=== PATIENT | male | born 1945 | race Two or more races ===

== ENCOUNTER 2019-02-12 22:09 | Inpatient (IN) | payer OTHER ==
[~2019-02-12] VITALS: Ht 172.7 cm; Wt 67.0 kg
[2019-02-12] MEDS ORDERED: MORPHINE SULFATE 4 MG/ML SYR/VIAL IV ONE (23:30)
[2019-02-12] MEDS ORDERED: ONDANSETRON HCL 4 MG/2 ML VIAL IV ONE (23:30)
[2019-02-12] MEDS ORDERED: LORazepam 2MG/ML-1ML VIAL IV ONE (23:30)
[2019-02-12 23:45] LABS: Basophils # (auto) 0 uL; Basophils % (auto) 0.3 % (0.0-2.0); Eosinophils # (auto) 0.4 uL; Hematocrit 40.9 % (41.0-53.0); Lymphocytes % (auto) 14.4 % (10.0-50.0); Mean Corpuscular Hemoglobin 34.2 pg (28.0-32.0); Mean Corpuscular Hgb Conc. 34.2 g/dL (32.0-36.0); Mean Corpuscular Volume 100.2 fL (80.0-100.0); Monocytes # (auto) 0.7 uL; Monocytes % (auto) 5.1 % (0.0-12.0); Neutrophils # (auto) 10.5 uL; Neutrophils % (auto) 77.2 % (37.0-80.0); Nucleated Red Blood Cells % 0.1 %; Platelet Count (auto) 115 10^3/uL (140-450); Red Blood Cells 4.09 10^6/uL (4.5-5.90); Red Cell Distribution Width 12.7 % (11.8-14.3); White Blood Cell 13.6 10^3/uL (4.4-10.8)
[2019-02-13 00:04] LABS: INR 1.08 (0.9-1.15); Partial Thromboplastin Time 27.7 sec (23.78-33.04); Prothrombin Time 11.5 sec (9.27-12.13)
[2019-02-13 00:05] LABS: Albumin 3.7 g/dL (3.4-5.0); Anion Gap 6 (5-15); Blood Urea Nitrogen 23 mg/dL (7-18); Calcium 8.3 mg/dL (8.5-10.1); Carbon Dioxide 23 mmol/L (21-32); Chloride 112 mmol/L (98-107); Glucose 99 mg/dL (74-106); Potassium 3.4 mmol/L (3.5-5.1); Sodium 141 mmol/L (136-145)
[2019-02-13 00:08] LABS: Alanine Aminotransferase 29 U/L (16-61); Aspartate Aminotransferase 14 U/L (15-37); BUN/Creatinine Ratio 19.3; GFR African American 77 mL/min; GFR Non-African American 64 mL/min
[2019-02-13 00:19] LABS: Alkaline Phosphatase 101 U/L (45-117); Bilirubin, Total 0.4 mg/dL (0.2-1.0); Total Protein 7.4 g/dL (6.4-8.2)
[2019-02-13] MEDS ORDERED: ACETAMINOPHEN 325 MG TAB PO PRN (04:15)
[2019-02-13] MEDS ORDERED: TEMAZEPAM 15 MG CAP PO PRN (04:15)
[2019-02-13] MEDS ORDERED: cloNIDine HCL 0.1 MG TAB PO PRN (04:15)
[2019-02-13] MEDS ORDERED: ONDANSETRON HCL 4 MG/2 ML VIAL IV PRN (04:15)
[2019-02-13] MEDS ORDERED: MORPHINE SULFATE 4 MG/ML SYR/VIAL IV ONE (04:30)
[2019-02-13] MEDS ORDERED: ONDANSETRON HCL 4 MG/2 ML VIAL IV ONE (04:30)
[2019-02-13 05:14] LABS: Urine Amorphous Crystal FEW /hpf (None Seen); Urine Bacteria FEW /hpf (None Seen); Urine Blood 1+ /uL (Negative); Urine Mucus FEW (None Seen); Urine WBC 1 /hpf (0 - 3)
[2019-02-13] MEDS ORDERED: ENOXAPARIN SOD 40 MG/0.4 ML SYRINGE SC SCH (10:00)
[2019-02-13] MEDS: CARVEDILOL 3.125 MG TAB PO SCH ×2 (10:00→21:58)
[2019-02-13] MEDS: FAMOTIDINE 20 MG TAB PO SCH ×2 (10:00→21:54)
[2019-02-13] MEDS: MORPHINE SULFATE 4 MG/ML SYR/VIAL IV PRN ×3 (10:51→20:31)
[2019-02-13] MEDS ORDERED: POTASSIUM CHL 20 Meq TABLET PO ONE (15:30)
--- NOTE | 2019-02-13 15:30 | NUR ---
MS admit from ER DARION GAVLAN admitted to tele/MS after SBAR received. Patient oriented to SO ESQUIVEL, RN primary RN, unit, room, bed, and unit policies regarding patient care and visiting hours. Patient weighed by bedscale and encouraged to call if they need something. All questions and concerns addressed, patient verbalized understanding. Family at bedside.
[2019-02-13 17:33] VITALS: BP 151/66
[2019-02-13 17:54] VITALS: BP 151/66
--- NOTE | 2019-02-13 18:17 | NUR ---
ORDER TO INSERT GERMAN CATHETER; PATIENT REFUSES CATHETER INSERTION AT THIS TIME. PATIENT USING URINAL AT BEDSIDE. PATIENT EDUCATED, AND WILL CONTINUE TO MONITOR Q1.
[2019-02-13] MEDS ORDERED: ASPI-231 PO (21:05)
[2019-02-13] MEDS ORDERED: CARV3.1240 PO (21:05)
[2019-02-13 22:00] VITALS: BP 156/71
--- NOTE | 2019-02-13 22:35 | NUR ---
TRANSFERRED PATIENT TO ROOM 287A WITH DURABLE MEDICAL EQUIPMENT REPAIRER WITH ALL BELONGINGS. DAUGHTER AT BEDSIDE. CONTINUE PATIENT CARE.
[2019-02-14] MEDS: MORPHINE SULFATE 4 MG/ML SYR/VIAL IV PRN ×5 (00:55→20:29)
[2019-02-14 05:00] VITALS: BP 134/55
[2019-02-14 05:57] LABS: Basophils # (auto) 0 uL; Basophils % (auto) 0.3 % (0.0-2.0); Eosinophils # (auto) 0.4 uL; Hematocrit 32.3 % (41.0-53.0); Hemoglobin 11.5 g/dL (13.5-17.5); Lymphocytes # (auto) 1.3 uL; Lymphocytes % (auto) 16.8 % (10.0-50.0); Mean Corpuscular Hemoglobin 35.1 pg (28.0-32.0); Mean Corpuscular Hgb Conc. 35.5 g/dL (32.0-36.0); Mean Corpuscular Volume 98.9 fL (80.0-100.0); Monocytes # (auto) 0.6 uL; Monocytes % (auto) 7.4 % (0.0-12.0); Neutrophils # (auto) 5.5 uL; Neutrophils % (auto) 70.5 % (37.0-80.0); Platelet Count (auto) 84 10^3/uL (140-450); Red Blood Cells 3.27 10^6/uL (4.5-5.90); Red Cell Distribution Width 12.7 % (11.8-14.3); White Blood Cell 7.9 10^3/uL (4.4-10.8)
--- NOTE | 2019-02-14 06:20 | NUR ---
Family updated on pt status Family of DARION GALVAN updated on patient's status and condition AFTER VERIFICATION OF PASSWORD. All questions and concerns addressed. MICHAEL verbalized understanding.
[2019-02-14 06:21] LABS: BUN/Creatinine Ratio 13.1; Potassium 3.6 mmol/L (3.5-5.1)
--- NOTE | 2019-02-14 06:48 | NUR ---
PATIENT RESTING ON BED AT THIS TIME, NO RESPIRATORY DISTRESS NOTED. NEON INSTALLER AT BEDSIDE.
--- NOTE | 2019-02-14 08:28 | NUR ---
PATIENT'S DAUGHTER AT BEDSIDE. MADE AWARE HOLDING BREAKFAST TRAY AT THIS TIME, STILL WAITING FOR ORTH EVAL FOR POSSIBLE SURGERY FOR HIP FRACTURE. VERBALIZED UNDERSTANDING. CONTINUE PATIENT CARE.
[2019-02-14 09:00] VITALS: BP 137/63
--- NOTE | 2019-02-14 09:10 | NUR ---
PATIENT GIVEN SPONGE BATH BY PHTHALIC ACID PURIFIER. KEPT CLEAN AND DRY. PATIENT TOLERATED WELL. DAUGHTER AT BEDSIDE.
[2019-02-14] MEDS: CARVEDILOL 3.125 MG TAB PO SCH ×2 (10:15→21:42)
[2019-02-14] MEDS: FAMOTIDINE 20 MG TAB PO SCH ×2 (10:15→21:41)
--- NOTE | 2019-02-14 10:30 | NUR ---
spoke with dr. hook regarding ortho consult of patient, per dr. hook he spoke with dr. arrington yesterday and will see patient and will do surgery. made dr. hook aware that no orders was put in and per family member, dr. arrington has not seen patient. dr. hook stated he will text/notify dr. arrington again and may feed patient for now. notified patient's daughter of what dr. hook said. per patient's daughter, patient is getting anxious and is requesting to just be transferred to [facility], made daughter aware that transfer may also be delayed or may not happen tonight but will notify hospitalist. daughter verbalized understanding. continue patient care.
--- NOTE | 2019-02-14 10:45 | NUR ---
OFFERED NORCO IN BETWEEN MORPHINE FOR PATIENT'S PAIN, DAUGHTER REFUSED. CONTINUE PATIENT CARE.
--- NOTE | 2019-02-14 12:00 | NUR ---
PATIENT AND FAMILY MEMBERS DECIDED NOT TO BE TRANSFERRED AND WILL WAIT FOR ORTHO MD TO SEE PATIENT. PATIENT REQUESTED TO TAKE NORCO FOR PAIN AT THIS TIME. REINSTATEMENT CLERK AT BEDSIDE. CONTINUE PATIENT CARE.
[2019-02-14 12:20] VITALS: BP 120/57
[2019-02-14] MEDS: HYDROcodone-ACET 5/325MG TAB PO PRN ×2 (12:26→19:18)
[2019-02-14 13:00] VITALS: BP 115/55
--- NOTE | 2019-02-14 14:00 | NUR ---
DR. BOWDEN AT BEDSIDE TALKING WITH PATIENT'S DAUGHTER.
--- NOTE | 2019-02-14 15:18 | NUR ---
REPORTS GIVEN TO NEDA/RN TO ASSUME CARE OF PATIENT.
--- NOTE | 2019-02-14 15:20 | NUR ---
RECEIVED PATIENT FROM CULLEN/NAVIN. PATIENT RESTING IN BED. DAUGHTER AT BEDSIDE. NO S/S OF DISTRESS NOTED. PATIENT COULD ACTIVE ROM HIS LEGS WITH NO PAIN. POC INSTRUCTED AND ENCOURAGED PATIENT TO CALL FOR SHIRT FOLDING MACHINE OPERATOR IF NEEDED. BED IN LOWEST POSITION WITH SIDE RAILS UP X 2. CALL TORRES WITHIN REACH. ALARM ON. SITTER AT BEDSIDE FOR SAFETY. CONTINUE TO MONITOR FOR CHANGES Q1H AND PRN.
[2019-02-14 17:00] VITALS: BP 129/71
--- NOTE | 2019-02-14 17:07 | NUR ---
DR YANEZ AT BEDSIDE.
--- NOTE | 2019-02-14 17:27 | NUR ---
PUT PATIENT ON SCD ORDERED. PATIENT TOLERATED WELL. CONTINUE TO MONITOR.
--- NOTE | 2019-02-14 17:43 | NUR ---
ALL CONSENTS SIGNED BY PATIENT. CONTINUE CARE.
--- NOTE | 2019-02-14 19:20 | NUR ---
PAIN MEDICATION GIVEN FOR PAIN @ 06/06 ORDERED. CONTINUE TO MONITOR.
[2019-02-14 20:42] LABS: Basophils # (auto) 0 uL; Hemoglobin 12.2 g/dL (13.5-17.5); Lymphocytes # (auto) 1.2 uL; Mean Corpuscular Hemoglobin 34.7 pg (28.0-32.0); Nucleated Red Blood Cells % 0.1 %; Red Blood Cells 3.52 10^6/uL (4.5-5.90)
[2019-02-14 20:44] LABS: Basophils % (auto) 0.4 % (0.0-2.0); Eosinophils # (auto) 0.5 uL; Hematocrit 34.9 % (41.0-53.0); Lymphocytes % (auto) 14.8 % (10.0-50.0); Mean Corpuscular Volume 99.2 fL (80.0-100.0); Monocytes # (auto) 0.6 uL; Monocytes % (auto) 7.4 % (0.0-12.0); Neutrophils # (auto) 5.7 uL; Neutrophils % (auto) 71.4 % (37.0-80.0); Platelet Count (auto) 87 10^3/uL (140-450); Red Cell Distribution Width 12.8 % (11.8-14.3)
--- NOTE | 2019-02-14 20:50 | NUR ---
PREMEDICATED PATIENT PAIN MEDICATION FOR TRACTION. TOTAL LINEN CHANGED, TRACTION APPLIED WITH 5 1BS BAG. PATIENT TOLERATED WELL. NO S/S OF DISTRESS NOTED. CONTINUE TO MONITOR.
[2019-02-14 21:36] VITALS: BP 159/68
--- NOTE | 2019-02-14 21:42 | NUR ---
IV removal PATIENT C/O ITCHING ON IV SITE AND INSISTED TO REMOVE IT. IV DC'd with clean sterile technique, catheter fully intact. Pressure dressing applied to site. Patient tolerated well. NOTE:
--- NOTE | 2019-02-14 21:43 | NUR ---
IV insertion IV access obtained, via clean sterile technique by inserting [20] gauge catheter at [RFA] after [1] attempt(s). IV secured properly. No trauma to site. Patient tolerated well. NOTE: []
--- NOTE | 2019-02-14 22:45 | NUR ---
REASSESSED BP 142/71, HR 73. CONTINUE TO MONITOR.
[2019-02-15] MEDS: MORPHINE SULFATE 4 MG/ML SYR/VIAL IV PRN ×2 (00:39→04:50)
--- NOTE | 2019-02-15 00:39 | NUR ---
PATIENT WOKE UP AND C/O PAIN @ 8/10. MEDICATED PATIENT ORDERED. CONTINUE TO MONITOR.
[2019-02-15] MEDS: HYDROcodone-ACET 5/325MG TAB PO PRN ×2 (02:35→19:52)
--- NOTE | 2019-02-15 02:51 | NUR ---
PATIENT C/O PAIN @ 8/10. MEDICATED PATIENT ORDERED. RIGHT FOOT IS WARM, PULSE IS GOOD. TRACTION IN PLACE. CONTINUE TO MONITOR.
--- NOTE | 2019-02-15 03:35 | NUR ---
PATIENT SLEEPING. NO S/S OF DISTRESS AND PAIN NOTED. TRACTION IN PLACE. SITTER AT BEDSIDE FOR SAFETY. CONTINUE TO MONITOR.
[2019-02-15 05:00] VITALS: BP 137/55
--- NOTE | 2019-02-15 05:14 | NUR ---
CHG WIPE DONE. PATIENT TOLERATED WELL. LINEN CHANGED. PAIN MEDICATION GIVEN FOR PAIN @ 06/06. CONTINUE TO MONITOR.
[2019-02-15 06:12] LABS: Eosinophils # (auto) 0.5 uL; Hemoglobin 11.8 g/dL (13.5-17.5); Mean Corpuscular Hemoglobin 35.1 pg (28.0-32.0); Mean Corpuscular Volume 98.2 fL (80.0-100.0); Monocytes # (auto) 0.7 uL
[2019-02-15 06:15] LABS: Basophils # (auto) 0.1 uL; Basophils % (auto) 0.6 % (0.0-2.0); Eosinophils % (auto) 5.6 % (0.0-7.0); Hematocrit 33.1 % (41.0-53.0); Lymphocytes # (auto) 1.4 uL; Lymphocytes % (auto) 15.6 % (10.0-50.0); Mean Corpuscular Hgb Conc. 35.7 g/dL (32.0-36.0); Neutrophils # (auto) 6.4 uL; Neutrophils % (auto) 70.2 % (37.0-80.0); Platelet Count (auto) 86 10^3/uL (140-450); Red Blood Cells 3.37 10^6/uL (4.5-5.90); Red Cell Distribution Width 12.6 % (11.8-14.3); White Blood Cell 9.1 10^3/uL (4.4-10.8)
--- NOTE | 2019-02-15 08:02 | NUR ---
Patient brought down to Pre-Op. No complaints of pain. tolerated procedure well.
[2019-02-15] MEDS ORDERED: ceFAZolin 1GM/50ML 100 ML IV ONE (08:23)
[2019-02-15] MEDS ORDERED: fentaNYL CITRATE 100 MCG/2 ML VL ONE ×2 (08:38→09:51)
[2019-02-15] MEDS ORDERED: MEPERIDINE HCL (50 MG/ML) 1 ML VIAL ONE (08:39)
[2019-02-15] MEDS ORDERED: MIDAZOLAM HCL 1MG/1ML-2 ML VIAL ONE (08:39)
[2019-02-15] MEDS ORDERED: SUCCINYLCHOLINE CHLORIDE 20 MG/ML 10ML VIAL IV ONE (08:42)
[2019-02-15] MEDS ORDERED: TRANEXAMIC ACID 20 ML ONE (08:42)
[2019-02-15] MEDS ORDERED: PROPOFOL 10 MG/ML 20 ML IV ONE (08:55)
[2019-02-15] MEDS ORDERED: DEXAMETHASONE SOD PHOS 10MG/1ML VIAL INJ ONE (08:55)
[2019-02-15] MEDS ORDERED: ETOMIDATE (2MG/ML) 20ML VIAL IV ONE (08:56)
[2019-02-15 09:00] VITALS: BP 108/54
[2019-02-15] MEDS ORDERED: KETOROLAC TROMETH 30 MG/ML 1ML VIAL IV ONE (10:00)
[2019-02-15] MEDS ORDERED: ePHEDrine SULFATE 50 MG/ML AMP IV PRN (10:00)
[2019-02-15] MEDS ORDERED: ONDANSETRON HCL 4 MG/2 ML VIAL IV ONE (10:00)
[2019-02-15] MEDS ORDERED: MORPHINE SULFATE 4 MG/ML SYR/VIAL IV PRN (10:00)
[2019-02-15] MEDS ORDERED: MIDAZOLAM HCL 1MG/1ML-2 ML VIAL IV PRN (10:00)
[2019-02-15] MEDS: CARVEDILOL 3.125 MG TAB PO SCH ×2 (10:00→22:44)
[2019-02-15] MEDS ORDERED: MORPHINE SULFATE 4 MG/ML SYR/VIAL IV ONE (10:00)
[2019-02-15] MEDS ORDERED: LABETALOL HCL 5 MG/ML 4ML SYRINGE IV PRN (10:00)
[2019-02-15] MEDS: FAMOTIDINE 20 MG TAB PO SCH ×2 (10:00→22:45)
[2019-02-15] MEDS ORDERED: hydrALAZINE HCL 20 MG/ML VL IV PRN (10:00)
[2019-02-15] MEDS ORDERED: HYDROmorphone HCL 2 MG/ML VL IV PRN (10:00)
[2019-02-15 13:00] VITALS: BP_SYST 131; BP_SYST 97; BP_DIAS 59; BP_DIAS 69
[2019-02-15] MEDS: ceFAZolin 1GM/50ML 50 ML IV SCH ×2 (14:00→22:45)
--- NOTE | 2019-02-15 14:00 | NUR ---
Patient back from the OR. recieved report from Althea HOLDEN. Patient brought up with dressing clean dry and in tact. Family at bedside. No complaints of pain. Will continue to monitor.
[2019-02-15] MEDS ORDERED: LORazepam 0.5 MG TAB PO PRN (15:00)
[2019-02-15 17:00] VITALS: BP_SYST 107; BP_SYST 134; BP_DIAS 55; BP_DIAS 62
--- NOTE | 2019-02-15 19:25 | NUR ---
Opening Shift Note Bed side report with day NAVIN Cedillo. Assumed care of patient, awake and alert. No S/S of distress/SOB PT report pain 05/07 will medicate per MD order. Family members at bedside. Sitter at bedside for safety, HOB elevated, pt running 2 L NC. Instructed on POC and to call for assist PRN, will continue to monitor for changes Q1hr and PRN.
[2019-02-15 21:17] VITALS: BP 133/51
[2019-02-16 05:12] VITALS: BP 141/65
[2019-02-16] MEDS: ceFAZolin 1GM/50ML 50 ML IV SCH (05:27)
[2019-02-16 06:03] LABS: BUN/Creatinine Ratio 14.3; Calcium 8.5 mg/dL (8.5-10.1); Potassium 4.2 mmol/L (3.5-5.1)
[2019-02-16 07:16] LABS: Basophils # (auto) 0 uL; Basophils % (auto) 0.1 % (0.0-2.0); Eosinophils # (auto) 0 uL
[2019-02-16 07:20] LABS: Eosinophils % (auto) 0.1 % (0.0-7.0); Hematocrit 31.9 % (41.0-53.0); Hemoglobin 11.2 g/dL (13.5-17.5); Lymphocytes % (auto) 6.8 % (10.0-50.0); Mean Corpuscular Hemoglobin 34.5 pg (28.0-32.0); Mean Corpuscular Volume 98.5 fL (80.0-100.0); Monocytes # (auto) 0.9 uL; Monocytes % (auto) 6.3 % (0.0-12.0); Neutrophils # (auto) 12.3 uL; Neutrophils % (auto) 86.7 % (37.0-80.0); Platelet Count (auto) 101 10^3/uL (140-450); Red Blood Cells 3.24 10^6/uL (4.5-5.90); Red Cell Distribution Width 12.6 % (11.8-14.3); White Blood Cell 14.2 10^3/uL (4.4-10.8)
--- NOTE | 2019-02-16 07:35 | NUR ---
OPENING SHIFT PATIENT AWAKE AND ALERT, ORIENTED X4. NO S/S OF DISTRESS, SOB, OR PAIN. SITTER IS AT BEDSIDE FOR PERIODS OF CONFUSION. PATIENT IS S/P RT HIP SURGERY 02/15, PT HAS ORIGINAL DRESSING TO RIGHT HIP THAT IS CLEAN, DRY, AND INTACT. PATIENT IN ON 2L NASAL CANNULA AND SALINE LOCKED. BED IS IN LOWEST POSITION, SIDE RAILS UP X2, AND CALL LIGHT WITHIN REACH. WILL CONTINUE TO MONITOR Q1 HOUR AND PRN.
--- NOTE | 2019-02-16 10:10 | NUR ---
DAUGHTER MICHAEL CONCERNED PATIENT HAS PERIODS OF CONFUSION. M.D. AWARE. THIS A.M. PATIENT WAS A & 0 X 4 WITH THIS R.N. DAUGHTER CAME OUT STATING, "MY DAD JUST SAID HE DOESN'T KNOW WHERE HE IS AT AGAIN. HE HAS NEVER BEEN LIKE THIS AT HOME. I THINK THE MEDICINE THAT MADE HIM LIKE THIS SHOULD BE GONE BY NOW, I WANT SOMEONE TO LOOK MORE INTO HIS CONFUSION." INFORMED DAUGHTER I WOULD INFORM M.D. OF FAMILY REQUEST. DAUGHTER VERBALIZED UNDERSTANDING.
[2019-02-16] MEDS ORDERED: SIMV-8 PO (10:20)
[2019-02-16] MEDS ORDERED: CARV6.2551 PO (10:23)
--- NOTE | 2019-02-16 10:24 | NUR ---
MED REC UPDATED DAUGHTER BROUGHT IN CURRENT MEDICATIONS FOR FATHER MED REC SUCCESSFULLY REVIEWED AND UPDATED
[2019-02-16] MEDS: FAMOTIDINE 20 MG TAB PO SCH ×2 (10:54→22:06)
[2019-02-16] MEDS: CARVEDILOL 3.125 MG TAB PO SCH ×2 (10:54→22:00)
[2019-02-16] MEDS: HYDROcodone-ACET 5/325MG TAB PO PRN ×2 (12:59→20:32)
--- NOTE | 2019-02-16 13:15 | NUR ---
PATIENT UP WITH PT PATIENT WAS MEDICATED FOR PAIN AT BEFORE ACTIVITY AMBULATED TO CHAIR AT BEDSIDE. PATIENT ALSO PERFORMED R.O.M EXERCISES. NO S/S OF DISTRESS, SOB, OR PAIN WILL CONTINUE TO MONITOR Q1 HOUR AND PRN
--- NOTE | 2019-02-16 14:41 | NUR ---
Nutrition Assessment Notes Please see attached link for complete assessment Est. Needs BW [id number] kcal (25-30 kcal/kgBW), 68-81 gms pro (1.0-1.2 gms/kgBW). Will continue to monitor pertinent labs and reassess nutrient need prn Addendum: 02/16/19 at [address] Amended: Links added.
--- NOTE | 2019-02-16 17:16 | NUR ---
assessment Patient is a 73 year old male who is confused. Per patients daughter Lilliam prior to admission patient lived home with her and functioned with assistance. Patient has a cane for home use. Patients PCP is at the [facility]. Per Lilliam patient tripped over their puppy and fell at home. Patient may benefit from SNF placement on discharge. Patient has an advanced directive and Lilliam is patients POA. Divine has verbalized understanding and agreed that patients post discharge needs will be determined prior to discharge. Addendum: 02/16/19 at 1719 by Molly CUEVAS Amended: Links added.
--- NOTE | 2019-02-16 17:39 | NUR ---
PATIENT CALM RESTING PATIENT RESTING IN BED. PATIENT ALERT, AND ORIENTED X3. CALM AND RELAXED. NO S/S OF DISTRESS, SOB, OR PAIN. WILL CONTINUE TO MONITOR Q1 HOUR AND PRN.
--- NOTE | 2019-02-16 18:49 | NUR ---
END OF SHIFT PATIENT ASLEEP IN BED. NO S/S OF DISTRESS, SOB, OR PAIN. RESPIRATIONS EVEN AND UNLABORED. BED IS IN LOWEST POSITION, SIDE RAILS UP X2, AND CALL LIGHT WITHIN REACH. WILL ENDORSE ARE TO COOKING INSTRUCTOR R.N.
[2019-02-16 23:40] VITALS: BP 90/40
[2019-02-17] MEDS: HYDROcodone-ACET 5/325MG TAB PO PRN ×3 (05:14→18:23)
[2019-02-17 06:05] LABS: Basophils # (auto) 0 uL; Basophils % (auto) 0.3 % (0.0-2.0); Eosinophils # (auto) 0.1 uL; Eosinophils % (auto) 0.7 % (0.0-7.0); Lymphocytes # (auto) 1.6 uL; Red Blood Cells 2.92 10^6/uL (4.5-5.90)
[2019-02-17 06:07] LABS: Hematocrit 28.7 % (41.0-53.0); Hemoglobin 10.2 g/dL (13.5-17.5); Lymphocytes % (auto) 15.3 % (10.0-50.0); Mean Corpuscular Hgb Conc. 35.7 g/dL (32.0-36.0); Mean Corpuscular Volume 98.1 fL (80.0-100.0); Monocytes # (auto) 0.7 uL; Monocytes % (auto) 7.2 % (0.0-12.0); Neutrophils # (auto) 7.9 uL; Neutrophils % (auto) 76.5 % (37.0-80.0); Platelet Count (auto) 105 10^3/uL (140-450); Red Cell Distribution Width 12.8 % (11.8-14.3); White Blood Cell 10.4 10^3/uL (4.4-10.8)
[2019-02-17 06:20] VITALS: BP 97/50
[2019-02-17 07:52] VITALS: BP 84/47
--- NOTE | 2019-02-17 09:37 | NUR ---
PT AT BEDSIDE P/T AT BEDSIDE TO AMBULATE PATIENT. DAUGHTER MICHAEL IS AT BEDSIDE WELL. PATIENT MEDICATED FOR PAIN PER EMAR/ M.D ORDER WILL CONTINUE TO MONITOR Q1 HOUR AND PRN.
[2019-02-17] MEDS: CARVEDILOL 3.125 MG TAB PO SCH ×2 (10:00→22:00)
[2019-02-17] MEDS: FAMOTIDINE 20 MG TAB PO SCH ×2 (10:23→22:00)
--- NOTE | 2019-02-17 10:36 | NUR ---
WOUND CARE INCISION OBSERVED. 16 HILARIO NOTED. CLEAN, NO DRAINAGE, NO ODOR. WOUND CLEANSED WITH NORMAL SALINE. PATTED DRY WITH STERILE GAUZE. ABDOMINAL ABSORBANT PAD PLACED OVER 16 HILARIO INCISION. MICROPORE TAPE PLACED OVER PAD TO SECURE DRESSING. PATIENT TOLERATED PROCEDURE WITHOUT S/S OF DISTRESS, SOB, OR PAIN.
[2019-02-17 12:49] VITALS: BP 118/55
[2019-02-17] MEDS ORDERED: MORPHINE SULFATE 4 MG/ML SYR/VIAL IV PRN (14:45)
[2019-02-17 16:40] VITALS: BP 140/49
--- NOTE | 2019-02-17 18:42 | NUR ---
END OF SHIFT PATIENT RESTING IN BED. SITTER AT BEDSIDE. NO S/S OF DISTRESS, SOB, OR PAIN. RESPIRATIONS EVEN AND UNLABORED. DRESSING TO RIGHT HIP IS CLEAN, DRY, AND INTACT. BED IS IN LOWEST POSITION, SIDE RAILS UP X2, AND CALL LIGHT WITHIN REACH. WILL ENDORSE ARE TO SUPERVISOR COMMISSARY PRODUCTION R.N.
--- NOTE | 2019-02-17 20:00 | NUR ---
OPENING SHIFT NOTE: PATIENT IS SLEEPING AT THE MOMENT. SITTER IS BEDSIDE. WILL CONTINUE TO MONITOR.
[2019-02-17 22:00] VITALS: BP 102/52
[2019-02-18 05:19] VITALS: BP 103/56
[2019-02-18 06:32] LABS: Basophils # (auto) 0 uL; Basophils % (auto) 0.5 % (0.0-2.0); Eosinophils # (auto) 0.4 uL; Eosinophils % (auto) 5.5 % (0.0-7.0); Hematocrit 32.3 % (41.0-53.0); Hemoglobin 11.2 g/dL (13.5-17.5); Lymphocytes # (auto) 1.6 uL; Lymphocytes % (auto) 20.9 % (10.0-50.0); Mean Corpuscular Hemoglobin 34.3 pg (28.0-32.0); Mean Corpuscular Hgb Conc. 34.6 g/dL (32.0-36.0); Mean Corpuscular Volume 99.2 fL (80.0-100.0); Monocytes # (auto) 0.6 uL; Neutrophils % (auto) 65.1 % (37.0-80.0); Platelet Count (auto) 123 10^3/uL (140-450); Red Blood Cells 3.26 10^6/uL (4.5-5.90); Red Cell Distribution Width 12.9 % (11.8-14.3); White Blood Cell 7.7 10^3/uL (4.4-10.8)
--- NOTE | 2019-02-18 07:30 | NUR ---
OPENING SHIFT PATIENT AWAKE, ALERT, AND ORIENTED X4. RESPIRATIONS EVEN AND UNLABORED. NO S/S OF DISTRESS OR SOB. PATIENT C/O OF RIGHT HIP PAIN. WILL MEDICATE PER EMAR/ M.D. ORDERS. DRESSING TO RIGHT HIP IS CLEAN, DRY, AND INTACT. DISCUSSED POC WITH PATIENT, PATIENT VERBALIZED UNDERSTANDING. SITTER IS AT BEDSIDE. BED IS IN LOWEST POSITION, SIDE RAILS UPX2 , AND CALL LIGHT WITHIN REACH. WILL CONTINUE TO MONITOR Q1 HOUR AND PRN.
[2019-02-18] MEDS: HYDROcodone-ACET 5/325MG TAB PO PRN ×2 (08:13→21:54)
--- NOTE | 2019-02-18 08:15 | NUR ---
C/O OF HIP/LEG/FOOT PAIN PATIENT C/O 10/10 PAIN IN RIGHT HIP/LEG/FOOT. DRESSING TO RIGHT HIP IS CLEAN, DRY, AND INTACT. NO SWELLING OBSERVED. AREA IS WARM TO TOUCH. PATIENT WAS ADMINISTERED MORPHINE AT 0547. PATIENT HAD NOT BEEN PREVIOUSLY ADMINISTERED MORPHINE DUE TO ALOC. PATIENT, HOWEVER, IS ALERT AND ORIENTED X4 AND STILL COMPLAINING OF PAIN. PATIENT STATES, " I WILL NOT BE ABLE TO DO PHYSICAL THERAPY TODAY. THE PAIN IS THROBBING AND RIDICULOUS, THE PAIN MEDICATION DOES NOT WORK. " PATIENT MEDICATED WITH NORCO PER EMAR/ M.D. ORDERS. PATIENT STATES, " THIS IS NOT GOING TO DO ANYTHING FOR ME. " WILL MONITOR PATIENT Q 30 MIN AND PRN. SITTER AT BEDSIDE
--- NOTE | 2019-02-18 08:52 | NUR ---
PATIENT C/O LEFT FOOT PAIN PATIENT STATES, "MY TOE NAILS HURT EXTREMELY BAD. CAUSING BULL SHIT PAIN." FACIAL GRIMACING WHEN SOCKS REMOVED. PATIENT PULLS AWAY TO TOUCH. DAUGHTER MICHAEL AT BEDSIDE STATES, " CAN YOU PUT AN ORDER FOR A FOOT DOCTOR IN. ITS BOTH HIS FEET. HE HAS A HISTORY OF LEG STENTS. " PEDAL PULSES PRESENT BILATERALLY. FEET ARE WARM TO TOUCH. EXPLAINED TO PATIENT AND FAMILY HOSPITAL POLICY AND PROCEDURE. INFORMED THEM I WOULD UPDATE M.D. ON PATIENTS CONDITION THIS A.M. PATIENT AND FAMILY VERBALIZED UNDERSTANDING.
[2019-02-18 09:14] VITALS: BP 99/64
--- NOTE | 2019-02-18 09:20 | NUR ---
DR. HURST UPDATED M.D. OF PATIENT STATUS AND FAMILY CONCERNS. M.Leonor. AT BEDSIDE DISCUSSING POC WITH PATIENT AND FAMILY PATIENT AND FAMILY VERBALIZED UNDERSTANDING NEW ORDERS PLACED
--- NOTE | 2019-02-18 09:59 | NUR ---
PATIENT WITH P/T P/T AT BEDSIDE. PATIENT HAS PERSONAL LEG BRACES ON BILATERALLY. NO S/S OF DISTRESS, SOB, OR PAIN. DAUGHTER AT BEDSIDE
[2019-02-18] MEDS: CARVEDILOL 3.125 MG TAB PO SCH ×2 (10:00→21:53)
[2019-02-18] MEDS: FAMOTIDINE 20 MG TAB PO SCH ×2 (10:50→21:54)
[2019-02-18] MEDS: ENOXAPARIN SOD 40 MG/0.4 ML SYRINGE SC SCH (10:50)
[2019-02-18 12:14] VITALS: BP 124/80
[2019-02-18 16:24] VITALS: BP 107/76
--- NOTE | 2019-02-18 18:38 | NUR ---
END OF SHIFT PATIENT RESTING IN BED. NO S/S OF DISTRESS, SOB, OR PAIN. RESPIRATIONS EVEN AND UNLABORED. BED IS IN LOWEST POSITION, SIDE RAILS UP X2, AND CALL LIGHT WITHIN REACH. WILL ENDORSE ARE TO MOBILITY DEVELOPER R.N.
[2019-02-18 21:41] VITALS: BP 94/63
[2019-02-19 05:33] VITALS: BP_SYST 102
--- NOTE | 2019-02-19 08:39 | NUR ---
PT SEEN BY DR. REYNOLDS HE ORDERED ARTERIAL STUDY BILATERAL LOWER EXTREMITY, PT WILL FOLLOW UP WITH HIM OUT PT.
--- NOTE | 2019-02-19 09:11 | NUR ---
ORDER AND CLINICALS FAXED TO [facility] REQUESTING AUTH FOR SNF.
[2019-02-19 09:24] VITALS: BP 130/64
[2019-02-19] MEDS: FAMOTIDINE 20 MG TAB PO SCH (09:35)
[2019-02-19] MEDS: CARVEDILOL 3.125 MG TAB PO SCH (09:36)
[2019-02-19] MEDS: ENOXAPARIN SOD 40 MG/0.4 ML SYRINGE SC SCH (09:36)
--- NOTE | 2019-02-19 09:40 | NUR ---
PAIN PT COMPLAINING OF PAIN ON RIGHT HIP 05/07, WILL GIVE PAIN MEDICATION ORDERED
[2019-02-19] MEDS: HYDROcodone-ACET 5/325MG TAB PO PRN (09:42)
--- NOTE | 2019-02-19 11:13 | NUR ---
POST OP DRESSING ON RIGHT HIP CHANGED, POST OP WOUND CLEAN DRY AND INTACT, NO DISCHARGES NOTED, HILARIO INTACT.
--- NOTE | 2019-02-19 11:15 | NUR ---
PT AMBULATED IN THE HALLWAY WITH PHYSICAL THERAPY USING WALKER.
--- NOTE | 2019-02-19 12:28 | NUR ---
PT SEEN BY DR. BOWDEN PT AND DAUGHTER MADE AWARE HE WILL BE TRANSFERRED TO SNF ONCE ACCEPTED AND BED IS AVAILABLE. PT VERBALIZED UNDERSTANDING.
[2019-02-19 12:34] VITALS: BP 123/57
--- NOTE | 2019-02-19 14:15 | NUR ---
Diaz catheter dc'd Order to discontinue diaz catheter. Diaz dc'd with clean technique following deflation of balloon. Patient tolerated well with no complaints of pain. Continue care.
[2019-02-19 15:03] VITALS: BP 130/64
--- NOTE | 2019-02-19 16:06 | NUR ---
AUTH FOR [facility] [id number]. AUTH FOR [facility] [id number].
[2019-02-19 16:09] VITALS: BP 126/77
--- NOTE | 2019-02-19 17:11 | NUR ---
SS consult for SNF placement. Pt's information faxed to 3 local SNF's and pt accepted at [facility] bed 61. Kai contacted and authorization for facility and transportation obtained. Report can be called in to [phone] and pt will be transported by [facility] at 6:30pm.
--- NOTE | 2019-02-19 17:27 | NUR ---
REPORT CALLED TO DEONDRE ABDULLAHI [facility] Addendum: 02/19/19 at 1728 by Vita Casper RN PER KAYLEN PT IS GOING TO BED 64A, DR. CONSTANTINO IS THE ACCEPTING DOCTOR
--- NOTE | 2019-02-19 19:00 | NUR ---
DISCHARGED TO [facility]. Encourage to follow up with DR. MONTENEGRO IN 1 MONTH, DAUGHTER MICHAEL STATED SHE WILL MAKE THE APPOINTMENT WITH DR. MONTENEGRO IN 1 MONTH. All questions and concerns addressed. Patient verbalized understanding. Medication reconciliation form completed and copy given to patient. IV removed with catheter intact, pressure dressing applied. Patient taken to vehicle via [facility] with all personal belongings, accompanied by [facility] staff and family member. No distress noted at time of departure.
--- NOTE | 2019-02-19 19:29 | NUR ---
CALLED [facility], SPOKE WITH DEONDRE ABDULLAHI, MADE AWARE HILARIO NEED TO BE REMOVED ON Tuesday02/23/[address] MONTENEGRO'S INSTRUCTION AND FOLLOW UP WITH DR. MONTENEGRO IN 1 MONTH.
== END 2019-02-19 19:00 | DRG 470 ==
LOC: EDBD 22:09 → ER 22:18 → OVERFLOW 02-13 04:15 → WEST WING 02-13 15:52
PROVIDERS: ADMIT Nurse Practitioner; ATTEND Internal Medicine
PROC: 0MBL0ZZ Excision of Right Hip Bursa and Ligament, Open Approach (ICD-10-PCS; 2019-02-15)
PROC: 0SRR01Z Replacement of Right Hip Joint, Femoral Surface with Metal Synthetic Substitute, Open Approach (ICD-10-PCS; principal; 2019-02-15 08:49)
DX: S72.011A Unspecified intracapsular fracture of right femur, initial encounter for closed fracture (principal); F17.210 Nicotine dependence, cigarettes, uncomplicated; I10 Essential (primary) hypertension; Z95.1 Presence of aortocoronary bypass graft; I25.10 Atherosclerotic heart disease of native coronary artery without angina pectoris; I73.9 Peripheral vascular disease, unspecified; M19.90 Unspecified osteoarthritis, unspecified site; J44.9 Chronic obstructive pulmonary disease, unspecified; M16.11 Unilateral primary osteoarthritis, right hip; G60.0 Hereditary motor and sensory neuropathy; E86.0 Dehydration; M70.60 Trochanteric bursitis, unspecified hip; W01.0XXA Fall on same level from slipping, tripping and stumbling without subsequent striking against object, initial encounter; Y93.K1 Activity, walking an animal; Y92.89 Other specified places as the place of occurrence of the external cause
CPT/HCPCS: 36415; 71045; 73501; 73700; 80048; 80053; 81001; 83880; 84443; 84484; 85025; 85610; 85730; 86850; 86900; 86901; 93005; 93306; 93926; 94761; 96374; 96375; 97110; 97116; 97530; A6257; C1776; G0378; J0330; J0690; J1100; J2250; J2405; J2704